=== PATIENT | female | born 1985 | race Caucasian/White ===

== ENCOUNTER 2016-07-15 16:14 | Emergency (ER) | payer OTHER | END 2016-07-15 16:46 | disposition left against medical advice (07) | LOC: UCCORT 16:14 | DX: Z53.21 Procedure and treatment not carried out due to patient leaving prior to being seen by health care provider (principal) ==

== ENCOUNTER 2019-09-26 18:46 | Emergency (ER) | payer BC, OTHER ==
[2019-09-26 18:57] VITALS: BP 110/63
--- NOTE | 2019-09-26 19:08 | UC ---
Complaint Female HPI - HPI Summary HPI Summary: 34 yo with low back ache and strong odor to urine x 2 months, with associated frequency and occasional dysuria. Comes today because she just got insurance coverage. No fever, abdominal pain, vaginal discharge. Does not want to screen for vaginosis. Has been following a keto diet, takes no supplements, and drinks a lot of water. No variation in symptoms with sexual activity. - History Of Current Complaint Stated Complaint: URINARY Hx Obtained From: Patient Hx Last Menstrual Period: 08/28/19 Onset/Duration: Sudden Onset Timing: Intermittent Severity Initially: Mild Severity Currently: Mild Pain Intensity: 1 Character: Burning Aggravating Factor(s): Urination Alleviating Factor(s): Nothing Associated Signs And Symptoms: Positive: Back Pain - pain is in the low lumbar area, not in the costovertebral angle. - Allergies/Home Medications Allergies/Adverse Reactions: Allergies Allergy/AdvReac Type Severity Reaction Status Date / Time No Known Allergies Allergy Verified 09/26/19 18:57 Home Medications: Home Medications NK [No Home Medications Reported] 09/26/19 [History Confirmed 09/26/19] PMH/Surg Hx/FS Hx/Imm Hx Previously Healthy: Yes - Surgical History Surgical History: Yes Surgery Procedure, Year, and Place: csection, back surgery - Family History Known Family History: Negative: Diabetes, Renal Disease - Social History Occupation: Employed Full-time Alcohol Use: Occasionally Substance Use Type: None Smoking Status (MU): Never Smoked Tobacco Review of Systems All Other Systems Reviewed And Are Negative: Yes Constitutional: Positive: Negative Skin: Positive: Negative Eyes: Positive: Negative ENT: Positive: Negative Respiratory: Positive: Negative Cardiovascular: Positive: Negative Gastrointestinal: Negative: Abdominal Pain, Vomiting, Diarrhea Genitourinary: Positive: Negative, Frequency Motor: Positive: Negative Neurovascular: Positive: Negative Musculoskeletal: Positive: Negative Neurological/Mental Status: Positive: Negative Psychological: Positive: Negative Is Patient Immunocompromised?: No Physical Exam Triage Information Reviewed: Yes Appearance: Well-Appearing, No Pain Distress Vital Signs: Initial Vital Signs Temp 99.1 F 09/26/19 18:53 Pulse 84 09/26/19 18:53 Resp 16 09/26/19 18:53 BP 110/63 09/26/19 18:53 Pulse Ox 100 09/26/19 18:53 ENT: Positive: Pharynx normal Respiratory: Positive: Lungs clear, Normal breath sounds Cardiovascular: Positive: RRR, No Murmur Abdomen Description: Positive: Nontender, No Organomegaly, Soft. Negative: CVA Tenderness (R), CVA Tenderness (L) Musculoskeletal Exam: Normal Neurological Exam: Normal Psychological Exam: Normal Skin Exam: Normal Complaint Female Dx - Course Course Of Treatment: Reviewed that UA is not suggestive of urinary tract infection, but will culture. Blood in urine --follow up recommended. - Differential Dx/Diagnosis Differential Diagnosis/HQI/PQRI: Urinary Tract Infection, Other - bacterial vaginosis Provider Diagnosis: Hematuria Discharge ED - Sign-Out/Discharge Documenting (check all that apply): Patient Departure All imaging exams completed and their final reports reviewed: No Studies - Discharge Plan Condition: Stable Disposition: HOME Patient Education Materials: Hematuria (ED) Referrals: Non Staff,Doctor [Medical Doctor] - Additional Instructions: Today's urine sample is not suggestive of infection, but does have a trace of blood. This is not necessarily abnormal, but usually is followed with a repeat test and microscopic assessment to determine the significance. Continue high intake of urine. Urine culture has been sent, and will be reported either Monday afternoon or Monday morning. You will be called if the culture is positive, but if you have not had a call you can call to confirm the report. - Billing Disposition and Condition Condition: STABLE Disposition: Home
--- NOTE | 2019-09-29 08:17 | UC ---
- Progress Note Progress Note: Culture results possibly due to contamination I suggest see get a repeat culture...in the face of no UTI symptoms this can be done at within the next week or two IF she develops burning/urgency or frequency she should get rechecked If she has no primary she may return here Course/Dx - Diagnoses Provider Diagnoses: Hematuria Discharge ED - Sign-Out/Discharge Documenting (check all that apply): Post-Discharge Follow Up All imaging exams completed and their final reports reviewed: No Studies - Discharge Plan Condition: Stable Disposition: HOME Patient Education Materials: Hematuria (ED) Referrals: Non Staff,Doctor [Medical Doctor] - Additional Instructions: Today's urine sample is not suggestive of infection, but does have a trace of blood. This is not necessarily abnormal, but usually is followed with a repeat test and microscopic assessment to determine the significance. Continue high intake of urine. Urine culture has been sent, and will be reported either Monday afternoon or Monday morning. You will be called if the culture is positive, but if you have not had a call you can call to confirm the report. - Billing Disposition and Condition Condition: STABLE Disposition: Home
== END 2019-09-26 19:32 | disposition home or self-care (01) ==
LOC: UCCORT 18:46
DX: R31.9 Hematuria, unspecified (principal); R35.0 Frequency of micturition; R30.0 Dysuria; M54.5 Low back pain
CPT/HCPCS: 81003; 87077; 87086; 87186; 99201; G0463